=== PATIENT | male | born 2000 | race American Indian/Alaskan Native ===

== ENCOUNTER 2019-09-04 23:25 | Emergency (ER) | payer MEDICAID, OTHER ==
--- NOTE | 2019-09-05 00:37 | XRay Report ---
RIGHT FOOT 3 VIEWS INDICATION: Right foot pain. COMPARISON: No relevant prior imaging study available. FINDINGS: No acute fracture or dislocation is seen. No soft tissue swelling or foreign bodies. There are no significant degenerative changes. No radiographic evidence of joint effusion. IMPRESSION: 1. No acute findings. Signer Name: Bruno Redding MD Signed: 09/05/2019 12:33 AM Workstation Name: [id number]
[2019-09-05] MEDS ORDERED: HYDROcodone/ACETAMINOPHEN 5-325 MG TAB PO ONE (02:20)
[2019-09-05] MEDS ORDERED: TETANUS,DIPH,PERTUSS(ACELL) VACCINE 0.5 ML SYRINGE IM ONE (02:20)
[2019-09-05] MEDS ORDERED: levoFLOXacin 750 MG TAB PO ONE (02:20)
[2019-09-05] MEDS ORDERED: IBUPROFEN 800 MG TAB PO ONE (02:20)
--- NOTE | 2019-09-05 02:26 | Emergency Department Report ---
HPI - General Chief Complaint: Puncture Wound Time Seen by Provider: 09/05/19 02:15 - HPI HPI: Room 35 The patient is a 18-year-old male presenting with chief complaint of right foot pain after stepping on a nail. The patient states this evening at 19:00 while walking he stepped on a nail with his right foot. The nail went through his shoe and into the sole of his right foot. Patient gives his pain a score of 9/10. Patient states he does not recall the last time he received a tetanus shot Location: [See above] Duration: [See above] Quality: [See above] Severity: [See above] Timing: [See above] Context: [See above] Modifying factors: [See above] Associated signs and symptoms: [see above] ED Past Medical Hx - Past Medical History Previous Medical History?: No - Surgical History Past Surgical History?: No - Social History Smoking Status: Never Smoker - Medications Home Medications: Home Medications Medication Instructions Recorded Confirmed Last Taken Type Brompheniramine/Pseudoephed/Dm 10 ml PO Q8H PRN #200 ml 01/20/16 Unknown Rx [Bromfed Dm Cough Syrup] Fluticasone [Flonase] 1 spray NS QDAY #1 bottle 01/20/16 Unknown Rx predniSONE [Deltasone] 20 mg PO QDAY #5 tab 01/20/16 Unknown Rx HYDROcodone/APAP 5-325 [[place] 1 - 2 each PO Q6HR PRN #10 tablet 09/05/19 Unknown Rx 5/325] Ibuprofen [Motrin 800 MG tab] 800 mg PO Q8HR PRN #20 tablet 09/05/19 Unknown Rx levoFLOXacin [Levaquin] 750 mg PO QDAY #10 tablet 09/05/19 Unknown Rx ED Review of Systems ROS: Stated complaint: STEPPED ON NAIL/RT FOOT LAC Other details as noted in HPI Musculoskeletal: myalgia Physical Exam - Physical Exam Vital Signs: Vital Signs 09/04/19 23:30 Temperature 98.1 F Pulse Rate 93 H Respiratory 19 Rate Blood Pressure 147/96 O2 Sat by Pulse 99 Oximetry Physical Exam: GENERAL: The patient is well-developed well-nourished male lying on stretcher not appearing to be in acute distress. [] HEENT: Normocephalic. Atraumatic. Extraocular motions are intact. CHEST/LUNGS: There is no respiratory distress noted. HEART/CARDIOVASCULAR: Regular. There is no tachycardia. 2+ right DP SKIN: There is a puncture wound to the sole of the right foot with surrounding dried blood. There is no active bleeding. Scant amount of ecchymosis to the dorsum of the right foot. There is no diaphoresis. NEURO: The patient is awake, alert, and oriented. The patient is cooperative. The patient has no focal neurologic deficits. The patient has normal speech MUSCULOSKELETAL: There is tenderness to palpation of the sole and dorsum of right foot ED Course Vital Signs 09/04/19 23:30 Temperature 98.1 F Pulse Rate 93 H Respiratory 19 Rate Blood Pressure 147/96 O2 Sat by Pulse 99 Oximetry ED Medical Decision Making - Radiology Data Radiology results: report reviewed (right foot x-ray), image reviewed (right foot x-ray) interpreted by me: Right foot x-ray-no acute fracture, no foreign body [facility] [address] [place] [address] XRay Report Signed Patient: AFUA WEI MR#: [id number] : 2000 Acct:[id number] Age/Sex: 18 / M ADM Date: 09/04/19 Loc: ED Attending Dr: Ordering Physician: GO COLLIER MD Date of Service: 09/04/19 Procedure(s): XR foot 3+V RT Accession Number(s): [id number] cc: ED MD NANDO Fluoro Time In Minutes: RIGHT FOOT 3 VIEWS INDICATION: Right foot pain. COMPARISON: No relevant prior imaging study available. FINDINGS: No acute fracture or dislocation is seen. No soft tissue swelling or foreign bodies. There are no significant degenerative changes. No radiographic evidence of joint effusion. IMPRESSION: 1. No acute findings. Signer Name: Bruno Redding MD Signed: 09/05/2019 12:33 AM Workstation Name: [id number] Transcribed By: MANUEL Dictated By: Bruno Redding MD Electronically Authenticated By: Bruno Redding MD Signed Date/Time: 09/05/1932 DD/ TD/TT: - Differential Diagnosis puncture wound right foot Critical care attestation.: If time is entered above; I have spent that time in minutes in the direct care of this critically ill patient, excluding procedure time. ED Disposition Clinical Impression: Puncture wound of right foot Disposition: DC-01 TO HOME OR SELFCARE Is pt being admited?: No Does the pt Need Aspirin: No Condition: Stable Instructions: Puncture Wound (ED) Additional Instructions: Return to the emergency department should you develop worsening symptoms, inability to tolerate food or liquids, high fever or any other concerns Prescriptions: levoFLOXacin [Levaquin] 750 mg PO QDAY #10 tablet Ibuprofen [Motrin 800 MG tab] 800 mg PO Q8HR PRN #20 tablet PRN Reason: Pain, Moderate (4-6) HYDROcodone/APAP 5-325 [[place] 5/325] 1 - 2 each PO Q6HR PRN #10 tablet PRN Reason: Pain Referrals: LEONARDO BERG MD [Staff Physician] - 3-5 Days (Dr. Berg is an orthopedic surgeon. Please follow-up with him for further evaluation) Time of Disposition: 02:26
[2019-09-05] MEDS ORDERED: NEOMY 3.5 MG/BACIT 400 UNITS/POLY B 5000 UNITS/GM OINT PACKET TP ONE (03:00)
[2019-09-05 03:20] VITALS: BP 128/68
== END 2019-09-05 03:21 | disposition home or self-care (01) ==
LOC: ED 23:25
DX: S91.331A Puncture wound without foreign body, right foot, initial encounter (principal); Z91.018 Allergy to other foods; Z79.899 Other long term (current) drug therapy; X58.XXXA Exposure to other specified factors, initial encounter; Y93.89 Activity, other specified; Y92.89 Other specified places as the place of occurrence of the external cause; Y99.8 Other external cause status
CPT/HCPCS: 90471; 90715; A6250